=== PATIENT | female | born 1995 | race Caucasian/White ===

== ENCOUNTER 2016-07-10 05:23 | Day surgery (SDC) | payer BC ==
[2016-07-08 11:32] LABS: HEMATOCRIT 39.8 % (36.0-47.0); HEMOGLOBIN 13.5 g/dL (12.0-15.5); HGB HCT DIFFERENCE 0.7; MEAN CORPUSCULAR HEMOGLOBIN 29.5 pg (27.0-33.4); MEAN CORPUSCULAR HGB CONC 33.9 g/dL (32.0-36.0); MEAN CORPUSCULAR VOLUME 87 fl (80-97); RED BLOOD COUNT 4.57 10^6/uL (3.72-5.28); RED CELL DISTRIBUTION WIDTH 12.6 % (11.5-14.0); WHITE BLOOD COUNT 4.7 10^3/uL (4.0-10.5)
[2016-07-08 11:36] LABS: APPEARANCE,URINE SLIGHTLY-CLOUDY; BILIRUBIN,URINE NEGATIVE (NEGATIVE); GLUCOSE, URINE NEGATIVE (NEGATIVE); KETONES,URINE NEGATIVE (NEGATIVE); LEUKOCYTE ESTERASE,URINE NEGATIVE (NEGATIVE); NITRITE,URINE NEGATIVE (NEGATIVE); PROTEIN,URINE NEGATIVE (NEGATIVE); URINE SPECIFIC GRAVITY 1.003; UROBILINOGEN,URINE NEGATIVE mg/dL (<2.0)
[2016-07-08 11:59] LABS: ANION GAP 12 (5-19); BLOOD UREA NITROGEN 5 mg/dL (7-20); CALCIUM 9.7 mg/dL (8.4-10.2); CARBON DIOXIDE 26 mmol/L (22-30); CHLORIDE 105 mmol/L (98-107); CREATININE RESULT 0.58 mg/dL (0.52-1.25); GLUCOSE 73 mg/dL (75-110); POTASSIUM 4.8 mmol/L (3.6-5.0); SODIUM 142.8 mmol/L (137-145)
[~2016-07-10 05:23] MED LIST: CEFAZOLIN 1 GM/D5W RTU 1 GM/50 ML RTUPB IV PRN; LIDOCAINE 0.5% INJ-PF (5 MG/ML) 50 ML SDV INJ PRN; RINGERS SOLUTION,LACTATED 1,000 ML IV PRN; SCOPOLAMINE HYDROBROMIDE 1.5 MG PATCH.TD72 ONE
[2016-07-10] MEDS ORDERED: PROPOFOL INJ 200 MG/20 ML VIAL IV ONE (06:57)
[2016-07-10] MEDS ORDERED: ACETAMINOPHEN 100 ML IV ONE (06:57)
[2016-07-10] MEDS ORDERED: FENTANYL CITRATE INJ/PF 100 MCG/2 ML AMPUL ONE (06:57)
[2016-07-10] MEDS ORDERED: MIDAZOLAM 2 MG/2 ML INJ ONE (06:57)
[2016-07-10] MEDS ORDERED: LIDOCAINE 1% INJ-PF (10 MG/ML) 30 ML SDV ONE (07:41)
[2016-07-10] MEDS ORDERED: MEPERIDINE HCL/PF INJ 25 MG/1 ML DISP.SYRIN IV PRN (07:42)
[2016-07-10] MEDS ORDERED: MORPHINE SULFATE 10 MG/ML INJ IV PRN (07:42)
[2016-07-10] MEDS ORDERED: FENTANYL CITRATE INJ/PF 100 MCG/2 ML AMPUL IV PRN ×3 (07:42)
[2016-07-10] MEDS ORDERED: PROMETHAZINE HCL INJ 25 MG/1 ML VIAL IV PRN ×2 (07:42)
[2016-07-10] MEDS ORDERED: DIPHENHYDRAMINE HCL 50 MG/ML VIAL IV PRN (07:42)
[2016-07-10] MEDS ORDERED: MORPHINE INJ 4 MG DOSE (EDIT ROUTE) INJ PRN (08:30)
[2016-07-10] MEDS ORDERED: OXYCODONE-ACETAMINOPHEN 5-325 MG TABLET PO PRN (08:30)
[2016-07-10] MEDS ORDERED: OXYCODONE-ACETAMINOPHEN 5-325 MG TABLET ONE (08:45)
[2016-07-10] MEDS ORDERED: PROMETHAZINE HCL INJ 50 MG/1 ML VIAL IM PRN (09:00)
--- NOTE | 2016-07-10 09:56 | OPERATIVE REPORT E ---
Operative Report NAME: JANA AMOS : 1995 AGE: 20Y DATE OF SURGERY: 07/10/2016 ROOM: PREOPERATIVE DIAGNOSIS: Desires permanent sterilization. POSTOPERATIVE DIAGNOSIS: Desires permanent sterilization. PROCEDURE: Laparoscopic Filshie clip application. SURGEON: JERRY CARVER M.D. COMPLICATIONS: None. ANESTHESIA: General endotracheal and local at incision site. FINDINGS: Normal pelvis. Normal tubes and ovaries. Normal upper abdomen and normal appendix. Normal gallbladder and liver. No endometriosis noted in the cul-de-sac. INDICATIONS FOR PROCEDURE: Patient desired permanent sterilization on multiple occasions. The usual risk of bleeding, infection, anesthesia, damage to organs or tissues had been discussed and the patient understood. She understands the risk of failure and subsequent is approximately 1:150 over 10 years. Other methods of control have been reviewed, discussed, and attempted by the patient. PROCEDURE: The patient was taken to the operating room and placed in the modified lithotomy position. After adequate anesthesia was ascertained, she was prepped in the usual manner for a laparoscopic surgery. Through an infraumbilical incision of subcutaneous fat and fascia, a Veress was inserted without difficulty. Then, 1.5 L of CO2 was instilled and a 10 mm trocar was placed. Under direct visualization, a 7 mm port was placed at approximately 3 fingerbreadths above the symphysis pubis under direct visualization. Filshie applicator was inserted and clips were placed approximately 1.5 cm from the uterine fundus with adequate clip noted to extend over the width of each tube. Tubes and ovaries *------* prior to this application. Survey of the abdomen was completed. Good hemostasis was assured. Incision sites were closed with 3-0 gut on subcu and the umbilical site had a fascial stitch of 2-0 Vicryl. At the completion of procedure, all sponge and needle counts were correct. Gas was removed prior to the *------*. Hulka tenaculum placed preop after surgical time out. The bladder was drained preoperatively. DICTATING PHYSICIAN: JERRY CARVER M.D. [id number] PHY#: [id number] ID: [id number] JOB#: [id number] ACCT: [id number] cc:JERRY CARVER M.D. >
[2016-07-10] MEDS ORDERED: IBUPROFEN 800 MG TABLET PO SCH (10:00)
[2016-07-10 10:06] VITALS: BP 114/71
[2016-07-10] MEDS ORDERED: NEOSTIGMINE METHYLSULFATE 10 MG/10 ML VIAL ONE (11:03)
[2016-07-10] MEDS ORDERED: DEXAMETHASONE SOD PHOSPHATE INJ 4 MG/1 ML VIAL ONE (11:03)
[2016-07-10] MEDS ORDERED: LIDOCAINE 2% INJ-PF (20 MG/ML) 10 ML AMPUL ONE (11:03)
[2016-07-10] MEDS ORDERED: ROCURONIUM BROMIDE INJ 50 MG/5 ML VIAL IV ONE (11:03)
[2016-07-10] MEDS ORDERED: GLYCOPYRROLATE INJ 0.4 MG/2 ML VIAL ONE (11:03)
[2016-07-10] MEDS ORDERED: ONDANSETRON HCL INJ/PF 4 MG/2 ML SDV ONE (11:03)
== END 2016-07-10 09:40 | disposition home or self-care (01) ==
LOC: OROUT 05:23
PROVIDERS: ATTEND Specialist
PROC: 0UL74CZ Occlusion of Bilateral Fallopian Tubes with Extraluminal Device, Percutaneous Endoscopic Approach (ICD-10-PCS; principal; 2016-07-10 07:15)
DX: Z30.2 Encounter for sterilization (principal); G43.909 Migraine, unspecified, not intractable, without status migrainosus
CPT/HCPCS: 86900; 86901; 36415; 86850; 85027; 81025; 80048; 81001; 58671; J2250; J0690; J3490 ×3; J1100; J3010; J2405; J2704; J0131; 851